=== PATIENT | male | born 1955 | race Two or more races ===

== ENCOUNTER 2018-11-24 17:13 | Emergency (ER) ==
[2018-11-24 17:18] VITALS: BP 142/92; TEMP 98.3; BMI 26.9
[2018-11-24] MEDS ORDERED: DECADRON 4 MG/ML SDV IM STA (17:44)
[2018-11-24] MEDS ORDERED: ZITHROMAX PO STA (17:44)
--- NOTE | 2018-11-24 17:56 | ED.PDOC ---
General ED Provider: Dr. ELICIA PIERSON Chief Complaint: Respiratory Complaint Stated Complaint: FLU LIKE SYMPTOMS, COUGH Time Seen by Physician: 17:17 (RN PRESENT AT ALL TIMES .PT SAID COLD AIR MAKES HIM COUGH) Mode of Arrival: Walk-In Information Source: Patient, EMT Exam Limitations: No limitations Nursing and Triage Documentation Reviewed and Agree: Yes Does patient meet sepsis criteria?: No System Inflammatory Response Syndrome: Not Applicable Sepsis Protocol: For patient's 13 years and over: Temp is 96.8 and below OR 101 and greater Pulse >90 BPM Resp >20/minute Acutely Altered Mental Status Are patient's symptoms suggestive of a new infection, such as: -Pneumonia -Skin, Soft Tissue -Endocarditis -UTI -Bone, Joint Infection -Implantable Device -Acute Abdominal Infection -Wound Infection -Meningitis -Blood Stream Catheter Infection -Unknown Respiratory Complaint Exam - Respiratory Complaint/Exam Onset/Duration: 3 DAYS Symptoms Are: Still present Timing: Intermittent Initial Severity: Mild Current Severity: Mild Location: Nose, Throat, Chest Character: Reports: Non-productive cough, Dry cough Aggravating: Reports: URI Alleviating: Reports: Spontaneous resolution Associated Signs and Symptoms: Reports: URI, Nasal congestion. Denies: Rapid breathing, Dyspnea, Fever, Chills, Chest pain, Pleuritic chest pain, Wheezing, Hemoptysis, Dizziness, Calf pain, Calf swelling, Edema, Hoarseness, Sinus discomfort, Vomiting, Sore throat, Weight loss, Decreased oral intake, Increased thirst, Increased appetite, Increased urination Related History: Reports: Similar episode History of Healthcare-Acquired Pneumonia: No Related Surgical History: Reports: None Pulmonary Embolism Risk Factors: None Review of Systems - Review Of Systems Constitutional: Reports: Chills, Fever, Malaise, Loss of appetite Eyes: Reports: No symptoms Ears, Nose, Mouth, Throat: Reports: No symptoms Respiratory: Reports: Cough Cardiac: Reports: No symptoms GI: Reports: No symptoms : Reports: No symptoms Musculoskeletal: Reports: No symptoms Skin: Reports: No symptoms Neurological: Reports: No symptoms Endocrine: Reports: No symptoms Hematologic/Lymphatic: Reports: No symptoms All Other Systems: Reviewed and Negative Past Medical History - Past Medical History Previously Healthy: Yes Endocrine: Reports: None Cardiovascular: Reports: None Respiratory: Reports: None Hematological: Reports: None Gastrointestinal: Reports: None Genitourinary: Reports: None Neuro/Psych: Reports: None Musculoskeletal: Reports: None Cancer: Reports: None - Surgical History General Surgical History: Reports: None - Family History Family History: Reports: None - Social History Smoking Status: Former smoker Hx Substance Use: No Alcohol Screening: Occasionally Physical Exam - Physical Exam Appearance: Well-appearing, No pain distress, Well-nourished Eyes: SOSA, EOMI, Conjunctiva clear ENT: Ears normal, Nose normal, Oropharynx normal Respiratory: Airway patent, Breath sounds clear, Breath sounds equal, Respirations nonlabored, Rhonchi Cardiovascular: RRR, Pulses normal, No rub, No murmur GI/: Soft, Nontender, No masses, Bowel sounds normal, No Organomegaly Musculoskeletal: Normal strength, ROM intact, No edema, No calf tenderness Skin: Warm, Dry, Normal color Neurological: Sensation intact, Motor intact, Reflexes intact, Cranial nerves intact, Alert, Oriented Psychiatric: Affect appropriate, Mood appropriate Critical Care Note - Critical Care Note Total Time (mins): 0 Course - Course Orders, Labs, Meds: Lab Review 11/24/18 17:30 Influ A Molecular Assay Positive by naat H Influ B Molecular Assay Negative by naat Orders Category Date Time Status FLU A/B MOLECULAR Stat LAB 11/24/18 17:30 Completed MOLECULAR GROUP A STREP Stat LAB 11/24/18 17:30 Completed Azithromycin [Zithromax] MEDS 11/24/18 17:44 Discontinued 1,000 mg PO ONCE STA Dexamethasone 4 mg/ml Inj [Decadron 4 mg/ml Sdv] MEDS 11/24/18 17:44 Discontinued 8 mg IM ONCE STA CT CHEST W/O CONTRAST Stat RADS 11/24/18 17:43 Taken Medications Discontinued Medications Generic Name Dose Route Start Last Admin Trade Name Freq PRN Reason Stop Dose Admin Azithromycin 1,000 mg 11/24/18 17:44 11/24/18 17:49 Zithromax PO 11/24/18 17:45 1,000 mg ONCE STA Administration Dexamethasone Sodium Phosphate 8 mg 11/24/18 17:44 11/24/18 17:50 Decadron 4 Mg/Ml Sdv IM 11/24/18 17:45 8 mg ONCE STA Administration Vital Signs: Temp Pulse Resp BP Pulse Ox 11/24/18 17:14 98.3 F 108 H 20 142/92 H 94 L Departure - Departure Time of Disposition: 19:00 Disposition: HOME SELF-CARE Discharge Problem: Bronchitis, Viral syndrome, Cough, Influenza A Instructions: Chronic Cough (ED), Viral Syndrome (ED), Cold Symptoms (ED), Influenza (ED) Condition: Good Pt referred to PMD for follow-up: Yes IPMP verified?: No Additional Instructions: Please call your Family Physician as soon as possible to schedule a follow-up appointment. prednisone 40mg one tablet daily (#3) start tomorrow. zithromax 500mg one tablet daily (#4) start tomorrow. Allergies/Adverse Reactions: Allergies No Known Allergies Allergy (Unverified 11/24/18 17:17) Home Medications: Ambulatory Orders 1 [Unobtainable] 11/24/18 Disposition Discussed With: Patient
--- NOTE | 2018-11-24 18:20 | CT ---
EXAM: CT scan chest without contrast HISTORY: Chronic cough COMPARISON: None. FINDINGS: Contiguous axial images obtained through the chest without contrast utilizing 5-mm collima tion. Sagittal and coronal reconstructions were imaged and reviewed.. The thoracic inlet is unremar kable. The ascending aorta is ectatic measuring 3.4 cm. The heart is normal in size without pericar dial effusion. There is a hiatal hernia with mild distension of the thoracic esophagus possibly rela deep to reflux.. The lungs are clear bilaterally. Bone windows reveals no evidence of lytic or blast ic lesions.. Mild fatty infiltration is seen in the liver. Gallstone is seen within the gallbladder . IMPRESSION: Hiatal hernia. No acute intrathoracic findings. Ectatic ascending aorta. Fatty liver. Cholelithiasis.
== END 2018-11-24 18:38 | disposition home or self-care (01) ==
LOC: ED 17:13
DX: J40 Bronchitis, not specified as acute or chronic (principal); J11.1 Influenza due to unidentified influenza virus with other respiratory manifestations; B34.9 Viral infection, unspecified
CPT/HCPCS: 87502; 87651; 96372; 99283